=== PATIENT | male | born 1940 | race Caucasian/White ===

== ENCOUNTER 2021-08-10 10:11 | Emergency (ER) | payer OTHER ==
[~2021-08-10] VITALS: Ht 177.8 cm; Wt 66.8 kg
[~2021-08-10 10:11] MED LIST: CELEBREX200 MG PO; NAPROSYN500 MG PO; PENICILLN VK250 MG OR
[2021-08-10] MEDS ORDERED: OMNI-PAC300 MG PO (12:21)
[2021-08-10] MEDS ORDERED: HYDROCO/APAP1 TA9 PO (12:21)
[2021-08-10] MEDS ORDERED: ONDANSETRON ODT8 MG PO (12:21)
[2021-08-10 12:27] VITALS: BP 153/74
== END 2021-08-10 12:44 | disposition home or self-care (01) | DRG 982 ==
LOC: ED 10:11
PROC: 0XQBXZZ Repair Right Elbow Region, External Approach (ICD-10-PCS; principal; 2021-08-10)
DX: S22.41XA Multiple fractures of ribs, right side, initial encounter for closed fracture (principal); S46.821A Laceration of other muscles, fascia and tendons at shoulder and upper arm level, right arm, initial encounter; W06.XXXA Fall from bed, initial encounter; Y92.003 Bedroom of unspecified non-institutional (private) residence as the place of occurrence of the external cause